=== PATIENT | male | born 1955 | race Caucasian/White ===

== ENCOUNTER 2024-08-15 11:14 | Emergency (ER) | payer OTHER ==
--- OUTSIDE RECORDS SUMMARY | 2024-08-15 11:17 | XMS REPORT | Continuity of Care Document ---
Author Name Unknown Address [address] [facility] [address] [place] [id number] [facility] thconnect Address [address] [facility] [address] [place] [address] Care Team Providers Care Inside Sales Territory Manager Name Role Phone Radiology Attending Clinician Unavailable RADIOLOGY Attending Clinician Unavailable ADILENE MEYERS M.D. Attending Clinician Unavail KARL Yousif Attending Clinician KARL Jackman Admitting Clinician Diana jacob Payers Payer Name Policy Type Policy Number Effective Date Expirati on Date Source [employer] [id number] 2016 00:00:00 2018 00:00:00 Problems Condition Name Condition Details Condition Category Status Onset Date Resolution Date Last Treatment Date Treating Clinician Comments Source Obesity (BMI 30-39.9) Obesity (BMI 30-39.9) Disease Active 02-25 00:00: 00 [facility] Essential (primary) hypertensi on Essential (primary) hypertensi on Problem Active [facility] Bladder cancer Bladder cancer Problem Active [facility] 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 Problem Active [facility] Hyperglyce nimo Hyperglyce nimo Problem Active [facility] Fatty liver Fatty liver Problem Active [facility] Chronic hepatitis C without mention of hepatic coma Chronic hepatitis C without mention of hepatic coma Problem Active [facility] HDL deficiency HDL deficiency Problem Active [facility] History of Arthritis History of Arthritis Problem Resolve d [facility] History of Bladder cancer History of Bladder cancer Problem Resolve d [facility] History of Hemorrhoid History of Hemorrhoid Problem Resolve d [facility] History of Hepatitis History of Hepatitis Problem Resolve d [facility] History of Hernia History of Hernia Problem Resolve d [facility] History of High blood pressure History of High blood pressure Problem Resolve d [facility] History of Peptic ulcer History of Peptic ulcer Problem Resolve d [facility] Epistaxis Epistaxis Problem Active [facility] Left hip pain Left hip pain Problem Active [facility] Osteoarthr itis of left hip Osteoarthr itis of left hip Problem Active [facility] Allergies, Adverse Reactions, Alerts Allergy Name Allergy Type Status Severity Reaction(s) Onset Date Inactive Date Treating Clinician Comments Source MORPHINE DRUG INGREDI Active Unknown-Cmnt 02-24 00:00: 00 [facility] Morphine Propensi ty to adverse reaction s Active Unknown - See comments 02-24 00:00: 00 [facility] MORPHINE DRUG INGREDI Active Unknown-Cmnt 01-10 00:00: 00 [facility] PROCAINE HCL DRUG INGREDI Active Unknown-Cmnt 01-10 00:00: 00 [facility] Morphine Derivati ves drug allergy Active [facility] Family History Family Member Diagnosis Comments Start Date Stop Date Sourc e Mother Family history of He art disease [facility] Father Family history of Alzheimer's dementia without behavioral disturbance, unspecified timing of dementia onset [facility] Social History Social Habit Start Date Stop Date Quantity Comments Source [facility] History of tobacco use 2007-02-24 00:00:00 Smoker [facility] Smoking Status Start Date Stop Date Source Never smoker [facility] Former smoker 2017-03-02 00:00:00 2017-03-02 00:00:00 [facility] Medications Ordered Medication Name Filled Medication Name Start Date Stop Date Current Medication? Ordering Clinician Indication Dosage Frequency Signature (SIG) Comments Components Source iohexol (OMNIPAQUE 350 BULK-150 mL) injection 130 mL 12-17 21:15: 00 12-17 21:03 :00 No 130mL 130 mL, Intravenou s, ONCE, 1 dose, 12/17/20 at 1515, Routine [facility] Lisinopril Lisinopril 01-10 00:00: 00 Yes Jose José 1 tablet [facility] HYDROcodone -acetaminop hen 7.5-325 mg per tablet 02-25 14:53: 41 Yes 1{tbl} Take 1 tablet by mouth every 6 (six) hours as needed for Pain. [facility] metFORMIN 500 mg tablet 02-25 14:53: 41 Yes 500mg Take 500 mg by mouth 2 (two) times daily with meals. [facility] valsartan 320 mg tablet 02-25 14:53: 41 Yes 320mg Take 320 mg by mouth daily. [facility] Metformin HCl Metformin HCl Yes Jose José TAKE ONE TABLET BY MOUTH ONCE DAILY [facility] Niacin ER Niacin ER Yes Jose José 1 capsule with food [facility] Belsomra Belsomra Yes Jose Sykesa 1 tablet [facility] Flomax Flomax Yes Jose José not defined [facility] [place] Yes Jose José 1 tablet as needed [facility] HYDROcodone -Acetaminop hen TABS HYDROcodone -Acetaminop hen TABS Yes [facility] Diovan TABS Diovan TABS Yes [facility] [place] 7.5-325 MG Oral Tablet [place] 7.5-325 MG Oral Tablet Yes [facility] Methocarbam ol 500 MG Oral Tablet Methocarbam ol 500 MG Oral Tablet Yes [facility] Lisinopril 20 MG Oral Tablet Lisinopril 20 MG Oral Tablet Yes [facility] Aspirin 81 MG TABS Aspirin 81 MG TABS Yes [facility] Diovan Diovan 01-10 00:00 :00 No Jose José 1 tablet [facility] Valsartan Valsartan 01-10 00:00 :00 No Jose José TAKE ONE TABLET BY MOUTH ONCE DAILY [facility] Benicar Benicar 01-10 00:00 :00 No Jose José TAKE ONE (1) TABLET(S) BY MOUTH ONCE A DAY. [facility] Vital Signs Vital Name Observation Time Observation Value Comments S ource Weight 2019-02-03 13:17:00 250 [lb_av] [facility] Body Mass Index Calculated 2019-02-03 13:17:00 36.92 kg/m2 [facility] Procedures Procedure Date / Time Performed Performing Clinician Source HB CREATININE BLOOD 2020-12-17 20:37:00 [facility] History of Hernia Repair [facility] History of Bladder Surgery [facility] History of Tonsillectomy [facility] Encounters Start Date/Time End Date/Time Encounter Type Admission Type Attending Clinicians Care Facility Care Department Encounter ID Source 2020-12-17 14:00:00 2020-12-17 23:59:00 Hospital Encounter Radiology [facility] [id number] [facility] 2020-12-17 00:00:00 2020-12-17 00:00:00 Outpatient R RADIOLOGY [facility] [id number] [facility] 2020-12-10 00:00:00 2020-12-10 23:59:00 Outpatient R RADIOLOGY [facility] [id number] [facility] 2019-02-03 13:10:00 2019-02-03 13:10:00 AppointADILENE Stephen M.D. KORTHAUER, KEN, M.D. [facility] [id number] [facility] 2019-01-10 10:00:00 2019-01-10 10:00:00 [facility] [id number] [facility] 2017-02-25 06:56:00 2017-02-25 09:50:00 Outpatient R KARL MUNROE [facility] [id number] [facility] Results Test Description Test Time Test Comments Results Result Co mments Source [facility][U] XRAY HIP UNILATERAL MIN 2 VWS LEFT [id number] 2019-02-03 13:14:00Images acquired, not reported on this accession number.[facility]
--- NOTE | 2024-08-15 12:39 | RAD REPORT ---
EXAMINATION: US LEFT LOWER EXTREMITY VENOUS DOPPLER CLINICAL INDICATION: Pain;Swelling TECHNIQUE: Complete bilateral duplex sonography of the LEFT lower extremity veins was performed. The examination included compression for vein patency, color Doppler imaging and flow augmentation in response to distal compression of the distal external iliac, common femoral, femoral, popliteal, tibi al, and great and small saphenous veins. COMPARISON: No prior exam. FINDINGS: Duplex sonography testing of the veins of the LEFT lower extremity was performed. Color flow imaging shows all veins to be compressible with [id number] color filling. Pulsatile and phasic flow is present within all lower extremity deep and superficial veins examined. IMPRESSION: There is no deep vein or superficial vein thrombosis.
--- NOTE | 2024-08-15 12:41 | RAD REPORT ---
EXAMINATION:Lower Extremity Artery Uni Ltd CLINICAL INDICATION: Male, 68 years old. PAIN TECHNIQUE: Arterial duplex ultrasound was performed of the left with real-time, color-flow, and spect ral wave Doppler evaluation. Ankle brachial indices were not performed. COMPARISON: No prior exam. FINDINGS: Mild plaque throughout the evaluated arterial system. Triphasic waveforms are seen throughout the evaluated left lower extremity arterial system, to the le myranda of the popliteal artery.. Monophasic flow noted involving the left posterior tibial and dorsalis pedis artery. No complete occlusion seen. IMPRESSION: [id number] infrapopliteal peripheral vascular disease on the left noted.
[2024-08-15 13:40] LABS: Absolute Eosinophils 0.1 K/uL (0-0.5); Absolute Neutrophil 6.6 K/uL (1.8-8.0); Basophils % 0.3 % (0-1.3); Eosinophils % 0.8 % (0-4.4); Hematocrit 40.7 % (39.6-49.0); Hemoglobin 13.7 g/dL (13.6-17.9); MCH 31.5 pg (27.0-35.0); MCHC 33.5 g/dL (32.0-36.0); MCV 93.9 fL (80-100); Monocytes % 10.3 % (3.3-12.3); Neutrophils % 67.6 % (41.7-73.7); Platelets 244 thou/uL (152-406); RBC Red Blood Cell Count 4.34 M/uL (4.33-5.43); Red Cell Distribution Width 13.9 % (12.1-15.2)
[2024-08-15 13:48] LABS: Specific Gravity 1.029 (1.005-1.030); Sqamous Epithelial <5 /HPF (None Seen); Urine Bacteria None Seen /HPF (<20); Urine Bilirubin NEGATIVE (Negative); Urine Blood Negative (Negative); Urine Clarity Clear (Clear); Urine Color Yellow (Yellow); Urine Culture Reflex Order NOT NEEDED; Urine Glucose NEGATIVE (Negative); Urine Ketones NEGATIVE (Negative); Urine Microscopic Reflex YN ORDER UMIC; Urine Mucus Slight /HPF (None Seen); Urine Nitrite NEGATIVE (Negative); Urine Protein TRACE (Negative); Urine RBC <5 /HPF (None Seen); Urine Urobilinogen 1+ (Normal); Urine WBC <5 /HPF (<5); Urine Yeast (Budding) Trace /HPF (None Seen); Urine pH 6.5 (5.0-7.0)
[2024-08-15 13:50] LABS: PT Prothrombin Time 11.8 SECONDS (9.4-12.5); PTT, Activated Partial Thromb 28.5 SECONDS (24.3-36.9); Protime INR 1.06
[2024-08-15 14:00] LABS: AST/SGOT 15 U/L (15-37); Albumin 3.9 g/dL (3.4-5.0); Albumin/Globulin Ratio 0.9 (1.1-1.8); Alkaline Phosphatase 55 U/L (45-117); Anion Gap 6.8 mEq/L (5.0-15.0); BUN Blood Urea Nitrogen 16 mg/dL (7-18); Bicarbonate 28 mEq/L (21-32); Bilirubin Total 0.7 mg/dL (0.2-1.0); Globulin 4.2 g/dL (2.3-3.5); Glomerular Filtration Rate 71 ml/min (=/>90); Glucose Level 118 mg/dL (74-106); Potassium 3.8 mEq/L (3.5-5.1); Protein, Total 8.1 g/dL (6.4-8.2); Sodium Level 139 mEq/L (136-145)
[2024-08-15 14:01] LABS: ALT/SGPT < 14 U/L (16-61)
[2024-08-15] MEDS ORDERED: DOXYCYCLINE 100 MG CAP PO ONE (14:31)
[2024-08-15] MEDS ORDERED: KETOROLAC 30 MG/ML INJ ONE (14:31)
--- NOTE | 2024-08-15 14:35 | EDPHYS ---
Physician Documentation [facility] Name: Stephon Thayer Age: 68 yrs Sex: Male : 1955 Arrival Date: 08/15/2024 Time: 11:14 Bed 7 Private MD: ED Physician Samir Ruby HPI: 08/15 11:45 This 68 yrs old Male presents to ER via Ambulatory with complaints of Leg Swelling - cp Left. 11:45 The patient presents with pain, that is acute, swelling, tenderness, erythema. cp 11:45 The complaints affect the medial aspect of left calf and left bustillos. Context: resulted cp from an unknown cause, the patient can fully bear weight, the patient is able to ambulate, with mild difficulty. Onset: The symptoms/episode began/occurred 4 day(s) ago. Associated signs and symptoms: Pertinent positives: calf tenderness, swelling, warmth, Pertinent negatives fever, numbness, rash. Treatment prior to arrival includes: no previous treatment. Severity of symptoms: in the emergency department the symptoms are unchanged, despite home interventions. Historical: - Allergies: 11:36 No Known Allergies; cm10 - Home Meds: 11:36 Methocarbamol Oral as needed [Active]; oxycodone 5 mg Oral tablet [Active]; cm10 - PMHx: 11:36 Chronic hip pain; cm10 - Immunization history:: Adult Immunizations up to date. - Infectious Disease History:: Denies. - Social history:: Smoking status: Patient denies any tobacco usage or history of. ROS: 11:50 Constitutional: Negative for body aches, chills, fever, poor PO intake, cp 11:50 Eyes: Negative for injury, pain, redness, and discharge, cp 11:50 ENT: Negative for drainage from ear(s), ear pain, sore throat, difficulty swallowing, difficulty handling secretions, 11:50 Cardiovascular: Positive for edema, Negative for chest pain, palpitations, 11:50 Respiratory: Negative for cough, shortness of breath, wheezing, 11:50 Abdomen/GI: Negative for abdominal pain, vomiting, diarrhea, constipation, 11:50 Back: Negative for pain at rest, pain with movement, 11:50 MS/extremity: Positive for erythema, pain, swelling, tenderness, of the left bustillos and medial aspect of left calf, 11:50 Neuro: Negative for altered mental status, dizziness, headache, numbness, syncope, weakness, 11:50 All other systems are negative, Exam: 11:55 Constitutional: The patient appears in no acute distress, alert, awake, cp non-diaphoretic, non-toxic, well developed, well nourished, uncomfortable, 11:55 Head/Face: Normocephalic, atraumatic. cp 11:55 Eyes: Periorbital structures: appear normal, Conjunctiva: normal, no exudate, no injection, Sclera: no appreciated abnormality, Lids and lashes: appear normal, bilaterally, 11:55 ENT: External ear(s): are unremarkable, Nose: is normal, Mouth: Lips: moist, Oral mucosa: moist, Posterior pharynx: Airway: no evidence of obstruction, patent, 11:55 Neck: ROM/movement: is normal, is supple, without pain, no range of motions limitations, 11:55 Chest/axilla: Inspection: normal, 11:55 Cardiovascular: Rate: normal, Rhythm: regular, Edema: 1+ edema to level of right ankle and right foot, 2+ edema to level of left ankle and left foot, ankle edema, that is mild, JVD: is not appreciated, 11:55 Respiratory: the patient does not display signs of respiratory distress, Respirations: normal, no use of accessory muscles, no retractions, labored breathing, is not present, Breath sounds: are clear throughout, no decreased breath sounds, no stridor, no wheezing, 11:55 Abdomen/GI: Exam negative for discomfort, distension, guarding, Inspection: abdomen appears normal, 11:55 Back: pain, is absent, ROM is normal, 11:55 Musculoskeletal/extremity: Extremities: noted in the left bustillos and medial aspect of left calf: erythema, pain, swelling, tenderness, 11:55 Neuro: Orientation: to person, place \T\ time. Mentation: is normal, 13:23 ECG was reviewed by the Attending Physician. cp Vital Signs: 11:34 BP 149 / 80; Pulse 80; Resp 16; Temp 98.7; Pulse Ox 99% on R/A; Weight 102.97 kg; cm10 Height 5 ft. 9 in. ; Pain 5/10; 14:26 BP 139 / 88; Pulse 78; Resp 18; Pulse Ox 100% on R/A; mb9 15:12 BP 129 / 59; Pulse 71; Resp 16; Pulse Ox 100% on R/A; mb9 11:34 Body Mass Index 33.52 (102.97 kg, 175.26 cm) cm10 11:34 Pain Scale: Adult cm10 MDM: 11:38 Medical Screening Exam initiated cp 14:00 Differential diagnosis: cellulitis, abscess, DVT, sepsis. 14:33 Data reviewed: vital signs, nurses notes, lab test result(s), EKG, radiologic studies, cp ultrasound, and as a result, I will discharge patient. 14:33 I considered the following discharge prescriptions or medication management in the emergency department Medications were administered in the Emergency Department. See MAR. Counseling: I had a detailed discussion with the patient and/or guardian regarding the historical points, exam findings, and any diagnostic results supporting the discharge/admit diagnosis, lab results, radiology results, the need for outpatient follow up, a family practitioner, to return to the emergency department if symptoms worsen or persist or if there are any questions or concerns that arise at home. Response to treatment: the patient's symptoms have mildly improved after treatment, and as a result, I will discharge patient. 08/15 11:41 Order name: Blood Culture Adult (2) 08/15 11:41 Order name: CBC with Diff; Complete Time: 14:10 08/15 14:10 Interpretation: Normal except: MPV 7.0. 08/15 11:41 Order name: CMP; Complete Time: 14:10 08/15 14:10 Interpretation: Normal except: CL 108; GLUC 118; GFR 71; ALT < 14; GLOB 4.2; A/G 0.9. 08/15 11:41 Order name: Lactate w/ 2H reflex if indic.; Complete Time: 14:10 08/15 11:41 Order name: Protime (+inr); Complete Time: 14:10 08/15 11:41 Order name: Ptt, Activated; Complete Time: 14:10 08/15 11:41 Order name: Urinalysis w/ reflexes; Complete Time: 14:10 08/15 14:10 Interpretation: Normal except: UPROT TRACE; UUROB 1+; BYST Trace. 08/15 11:41 Order name: US Extremity Venous Unilateral Ltd; Complete Time: 14:10 08/15 14:11 Interpretation: Report reviewed. cp 08/15 11:41 Order name: US Lower Extremity Artery Uni Ltd; Complete Time: 14:10 cp 08/15 14:11 Interpretation: Report reviewed. cp 08/15 11:41 Order name: Accucheck; Complete Time: 13:23 cp 08/15 11:41 Order name: Cardiac monitoring; Complete Time: 13:23 cp 08/15 11:41 Order name: EKG - Nurse/Tech; Complete Time: 13:23 cp 08/15 11:41 Order name: IV Saline Lock - Large Bore; Complete Time: 13:23 cp 08/15 11:41 Order name: Labs collected and sent; Complete Time: 13:23 cp 08/15 11:41 Order name: O2 Per Protocol; Complete Time: 13: cp 08/15 11:41 Order name: O2 Sat Monitoring; Complete Time: 13:23 cp 08/15 11:41 Order name: Vital Signs; Complete Time: 13:23 cp EC: Rate is 81 beats/min. Rhythm is regular. AR interval is normal. QRS interval is normal. cp QT interval is normal. T waves are Inverted in lead aVR. Interpreted by me. Reviewed by me. Administered Medications: 14:36 Drug: Doxycycline PO 200 mg PO once Route: PO; mb9 15:03 Follow up: Response: No adverse reaction mb9 14:37 Drug: Bacitracin Topical Ointment (500 unit/g) 1 application Topical once Route: mb9 Topical; Site: affected area; 14:37 Drug: Ketorolac IVP 15 mg IVP once Route: IVP; Site: right antecubital; mb9 15:03 Follow up: Response: No adverse reaction mb9 Disposition: 17:54 I was immediately available on-site in the Emergency Department for consultation in the ms3 care of the patient. Disposition Summary: 08/15/24 14:34 Discharge Ordered Notes: Location: Home cp Problem: new cp Symptoms: have improved cp Condition: Stable cp Diagnosis - Cellulitis of left lower limb cp Followup: cp - With: Private Physician - When: 2 - 3 days - Reason: Recheck today's complaints Discharge Instructions: - Discharge Summary Sheet cp - Cellulitis, Adult cp Forms: - Medication Reconciliation Form cp - Antibiotic Education cp - Prescription Opioid Use cp - Patient Portal Instructions cp - Leadership Thank You Letter cp Prescriptions: - mupirocin 2 % Topical ointment - apply 1 application TOPICAL route 2 times per day; 45 gram tube; Refills: 0, cp Product Selection Permitted - Anaprox DS 550 mg Oral Tablet - take 1 tablet ORAL route every 12 hours As needed; 20 tablet; Refills: 0, cp Product Selection Permitted - Doxycycline Hyclate 100 mg Oral Tablet - take 1 tablet ORAL route every 12 hours; 20 tablet; Refills: 0, Product cp Selection Permitted Signatures: Dispatcher [employer] EDMS Liam Quijano PA PA cp Samir Ruby, DO ms3 Iesha Darden, RN RN mb9 Cecilia Burns RN RN cm10 Corrections: (The following items were deleted from the chart) 11:41 11:41 BLOOD CULTURE*+BA.LAB.BRZ ordered. EDMS EDMS 11:41 11:41 CBC+H.LAB.BRZ ordered. EDMS EDMS 11:41 11:41 COMPREHENSIVE METABOLIC PANEL+C.LAB.BRZ ordered. EDMS EDMS 11:41 11:41 LACTATE+C.LAB.BRZ ordered. EDMS EDMS 11:41 11:41 PROTIME (+INR)+COAG.LAB.BRZ ordered. EDMS EDMS 11:41 11:41 PTT, ACTIVATED+COAG.LAB.BRZ ordered. EDMS EDMS 11:41 11:41 Urinalysis+U.LAB.BRZ ordered. EDMS EDMS 11:41 11:41 Extremity Venous Uni Ltd+US.RAD.BRZ ordered. EDMS EDMS 11:41 11:41 Lower Extremity Artery Uni Ltd+US.RAD.BRZ ordered. EDMS EDMS
--- NOTE | 2024-08-15 14:35 | ER ---
Nurse's Notes [facility] Name: Stephon Thayer Age: 68 yrs Sex: Male : 1955 Arrival Date: 08/15/2024 Time: 11:14 Bed 7 Private MD: Diagnosis: Cellulitis of left lower limb Presentation: 08/15 11:34 Chief complaint: Patient states: Left lower leg pain, redness, swelling, and warmth to cm10 the touch onset 4 days ago. Pt note to have redness and swelling. Coronavirus screen: Client denies travel out of the [place] in the last 14 days. Ebola Screen: Patient denies travel to an Ebola-affected area in the 21 days before illness onset. No symptoms or risks identified at this time. Initial Sepsis Screen: Does the patient meet any 2 criteria? No. Patient's initial sepsis screen is negative. Does the patient have a suspected source of infection? No. Patient's initial sepsis screen is negative. Risk Assessment: Do you want to hurt yourself or someone else? Patient reports no desire to harm self or others. Onset of symptoms was August 11, 2024. 11:34 Method Of Arrival: Ambulatory cm10 11:34 Acuity: JL 3 cm10 Triage Assessment: 11:37 General: Appears in no apparent distress. comfortable, Behavior is calm, cooperative. cm10 Neuro: No deficits noted. Level of Consciousness is awake, alert, obeys commands, Oriented to person, place, time, situation, Appropriate for age. Respiratory: No deficits noted. Airway is patent Respiratory effort is even, unlabored, Respiratory pattern is regular, symmetrical. Historical: - Allergies: 11:36 No Known Allergies; cm10 - Home Meds: 11:36 Methocarbamol Oral as needed [Active]; oxycodone 5 mg Oral tablet [Active]; cm10 - PMHx: 11:36 Chronic hip pain; cm10 - Immunization history:: Adult Immunizations up to date. - Infectious Disease History:: Denies. - Social history:: Smoking status: Patient denies any tobacco usage or history of. Screenin:06 [facility] ED Fall Risk Assessment (Adult) History of falling in the last 3 months, mb9 including since admission No falls in past 3 months (0 pts) Confusion or Disorientation No (0 pts) Intoxicated or Sedated No (0 pts) Impaired Gait No (0 pts) Mobility Assist Device Used No (0 pt) Altered Elimination No (0 pt) Score/Fall Risk Level 0 - 2 = Low Risk Oriented to surroundings, Maintained a safe environment, Educated pt \T\ family on fall prevention, incl call for assistance when getting out of bed. Abuse screen: Denies threats or abuse. Nutritional screening: No deficits noted. Tuberculosis screening: No symptoms or risk factors identified. Assessment: 13:06 Reassessment: pt brought back to ER room. mb9 13:21 General: Appears in no apparent distress. Behavior is calm, cooperative. Pain: Denies mb9 pain. Neuro: Regan Agitation-Sedation Scale (RASS): 0 - Alert and Calm Level of Consciousness is awake, alert, obeys commands, Oriented to person, place, time, situation, Appropriate for age. Cardiovascular: Patient's skin is warm and dry. Cardiovascular: Pulses are 1+ in left posterior tibial artery and left dorsalis pedis artery. Respiratory: Airway is patent Respiratory effort is even, unlabored, Respiratory pattern is regular, symmetrical. GI: Abdomen is round non-distended. : No signs and/or symptoms were reported regarding the genitourinary system. EENT: No signs and/or symptoms were reported regarding the EENT system. Derm: Skin is red. Musculoskeletal: Range of motion: intact in all extremities, Swelling present in left leg. 14:37 Reassessment: No changes from previously documented assessment. Patient and/or family mb9 updated on plan of care and expected duration. Pain level reassessed. Patient is alert, oriented x 3, equal unlabored respirations, skin warm/dry/pink. 14:37 Reassessment: D/C pending medication administration wait time. mb9 Vital Signs: 11:34 BP 149 / 80; Pulse 80; Resp 16; Temp 98.7; Pulse Ox 99% on R/A; Weight 102.97 kg; cm10 Height 5 ft. 9 in. ; Pain 5/10; 14:26 BP 139 / 88; Pulse 78; Resp 18; Pulse Ox 100% on R/A; mb9 15:12 BP 129 / 59; Pulse 71; Resp 16; Pulse Ox 100% on R/A; mb9 11:34 Body Mass Index 33.52 (102.97 kg, 175.26 cm) cm10 11:34 Pain Scale: Adult cm10 ED Course: 11:15 Patient arrived in ED. im 11:18 Liam Quijano PA is PHCP. cp 11:18 Samir Ruby DO is Attending Physician. cp 11:36 Triage completed. cm10 11:37 Arm band placed on Patient placed in waiting room. cm10 12:19 US Extremity Venous Unilateral Ltd In Process Unspecified. EDMS 12:19 US Lower Extremity Artery Uni Ltd In Process Unspecified. EDMS 12:53 Iesha Darden, ADELFO is Primary Nurse. mb9 13:06 Placed in gown. Bed in low position. Call light in reach. Side rails up X 1. Provided mb9 Education on: press call light if needing anything. Client placed on continuous cardiac and pulse oximetry monitoring. NIBP monitoring applied. clinical sales consultant on. 13:21 EKG done, by ED staff, reviewed by Liam AGUILLON. mb9 13:22 No provider procedures requiring assistance completed. mb9 13:25 Initial lab(s) drawn, by nh, sent to lab. First set of blood cultures drawn by me, cc6 Second set of blood cultures drawn by nh. 13:33 Inserted saline lock: 20 gauge in right antecubital area, using aseptic technique. cc6 Blood collected. Flushed with 10 mL NS. 13:35 Blood Culture Adult (2) Sent. cc6 13:35 CBC with Diff Sent. cc6 13:35 CMP Sent. cc6 13:35 Lactate w/ 2H reflex if indic. Sent. cc6 13:35 Protime (+inr) Sent. cc6 13:35 Ptt, Activated Sent. cc6 13:35 Urinalysis w/ reflexes Sent. cc6 15:04 IV discontinued, intact, bleeding controlled, No redness/swelling at site. Pressure mb9 dressing applied. Administered Medications: 14:36 Drug: Doxycycline PO 200 mg PO once Route: PO; mb9 15:03 Follow up: Response: No adverse reaction mb9 14:37 Drug: Bacitracin Topical Ointment (500 unit/g) 1 application Topical once Route: mb9 Topical; Site: affected area; 14:37 Drug: Ketorolac IVP 15 mg IVP once Route: IVP; Site: right antecubital; mb9 15:03 Follow up: Response: No adverse reaction mb9 Medication: 13:06 VIS not applicable for this client. mb9 Outcome: 14:34 Discharge ordered by . cp 15:04 Discharged to home ambulatory, mb9 15:04 Condition: stable 15:04 Discharge instructions given to patient, Instructed on discharge instructions, follow up and referral plans. Demonstrated understanding of instructions, follow-up care, medications, Prescriptions given X 3, 15:13 Patient left the ED. mb9 Signatures: Dispatcher [employer] EDMS Liam Quijano PA PA cp Wilkerson, Mary Beth RN RN mb9 Gladys Mancera Clarissa, RN RN cm10 Patti Phillips cc6
[2024-08-15 15:26] VITALS: TEMP 98.7
[2024-08-15 15:32] VITALS: O2SAT 100
[2024-08-15 15:43] VITALS: BP 129/59
--- NOTE | 2024-08-17 14:57 | EKG ---
Test Date: 2024-08-15 Test Time: 13:16:21 Teaching Artist: MB MEASUREMENT RESULTS: Intervals: Rate: 81 NJ: 164 QRSD: 74 QT: 368 QTc: 427 May: P: 64 NJ: 164 QRS: 43 T: 53 INTERPRETIVE STATEMENTS: Sinus rhythm with marked sinus arrhythmia Anterior infarct, age undetermined Abnormal ECG Compared to ECG 05/31/2010 18:16:39 Myocardial infarct finding now present Electronically Signed On 08-17-24 14:48:21 CDT by Sacha Bacon
== END 2024-08-15 15:13 | disposition home or self-care (01) ==
LOC: ER 11:14
DX: L03.116 Cellulitis of left lower limb (principal)
CPT/HCPCS: 36415; 80053; 81001; 83605; 85025; 85610; 85730; 87040; 93005; 93926; 93971; 96374; 99285

== ENCOUNTER 2024-08-19 18:25 | Emergency (ER) | payer OTHER ==
--- OUTSIDE RECORDS SUMMARY | 2024-08-19 18:28 | XMS REPORT | Continuity of Care Document ---
Author Name Unknown Address [address] [place] [address] [facility] [address] [place] [address] Care Team Providers Care Epidemiology Internship Name Role Phone Radiology Attending Clinician Unavailable RADIOLOGY Attending Clinician Unavailable ADILENE MEYERS M.D. Attending Clinician Unavail KARL Yousif Attending Clinician KARL Jackman Admitting Clinician Diana jacob Payers Payer Name Policy Type Policy Number Effective Date Expirati on Date Source Connected [id number] 2016 00:00:00 2018 00:00:00 Problems Condition Name Condition Details Condition Category Status Onset Date Resolution Date Last Treatment Date Treating Clinician Comments Source Obesity (BMI 30-39.9) Obesity (BMI 30-39.9) Disease Active 02-25 00:00: 00 [facility] Essential (primary) hypertensi on Essential (primary) hypertensi on Problem Active [facility] Bladder cancer Bladder cancer Problem Active [facility] 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 Problem Active [facility] Hyperglyce nimo Hyperglyce nimo Problem Active [facility] Fatty liver Fatty liver Problem Active [facility] Chronic hepatitis C without mention of hepatic coma Chronic hepatitis C without mention of hepatic coma Problem Active [facility] HDL deficiency HDL deficiency Problem Active [facility] History of Arthritis History of Arthritis Problem [...] DRUG INGREDI Active Unknown-Cmnt 02-24 00:00: 00 [facility] Morphine Propensi ty to adverse reaction s Active Unknown - See comments 02-24 00:00: 00 [facility] MORPHINE DRUG INGREDI Active Unknown-Cmnt 01-10 00:00: 00 [facility] PROCAINE HCL DRUG INGREDI Active Unknown-Cmnt 01-10 00:00: 00 [facility] Morphine Derivati ves drug allergy Active [facility] Family History Family Member Diagnosis Comments Start Date Stop Date Sourc e Mother Family history of He art disease [facility] Father Family history of Alzheimer's dementia without behavioral disturbance, unspecified timing of dementia onset [facility] Social History Social Habit Start Date Stop Date Quantity Comments Source Sex Assigned At [facility] History of tobacco use 2007-02-24 00:00:00 Smoker [facility] Smoking Status Start Date Stop Date Source Never smoker [facility] Former smoker 2017-03-02 00:00:00 2017-03-02 00:00:00 [facility] Medications Ordered Medication Name Filled Medication Name Start Date Stop Date Current Medication? Ordering Clinician Indication Dosage Frequency Signature (SIG) Comments Components Source iohexol (OMNIPAQUE 350 BULK-150 mL) injection 130 mL 12-17 21:15: 00 12-17 21:03 :00 No 130mL 130 mL, Intravenou s, ONCE, 1 dose, 12/17/20 at 1515, Routine [facility] Lisinopril Lisinopril 01-10 00:00: 00 Yes Jose José 1 tablet [facility] HYDROcodone -acetaminop hen 7.5-325 mg per tablet 02-25 14:53: 41 Yes 1{tbl} Take 1 tablet by mouth every 6 (six) hours as needed for Pain. [facility] metFORMIN 500 mg tablet 02-25 14:53: 41 Yes 500mg Take 500 mg by mouth 2 (two) times daily with meals. [facility] valsartan 320 mg tablet 02-25 14:53: 41 Yes 320mg Take 320 mg by mouth daily. [facility] Metformin HCl Metformin HCl Yes Jose José TAKE ONE TABLET BY MOUTH ONCE DAILY [facility] Niacin ER Niacin ER Yes Jose José 1 capsule with food [facility] Belsomra Belsomra Yes Jose Sykesa 1 tablet [facility] Flomax Flomax Yes Jose José not defined [facility] Pembroke P[place]roke Yes Jose José 1 tablet as needed [facility] HYDROcodone -Acetaminop hen TABS HYDROcodone -Acetaminop hen TABS Yes [facility] Diovan TABS Diovan TABS Yes [facility] [place]roke 7.5-325 MG Oral Tablet [place] 7.5-325 MG Oral Tablet Yes [facility] Methocarbam ol 500 MG Oral Tablet Methocarbam ol 500 MG Oral Tablet Yes [facility] Lisinopril 20 MG Oral Tablet Lisinopril 20 MG Oral Tablet Yes [facility] Aspirin 81 MG TABS Aspirin 81 MG TABS Yes [facility] Diovan Diovan 01-10 00:00 :00 No Jose José 1 tablet [facility] Valsartan Valsartan 01-10 00:00 :00 No oJse José TAKE ONE TABLET BY MOUTH ONCE DAILY [facility] Benicar Benicar 01-10 00:00 :00 No Jose José TAKE ONE (1) TABLET(S) BY MOUTH ONCE A DAY. [facility] Vital Signs Vital Name Observation Time Observation Value Comments S ource Weight 2019-02-03 13:17:00 250 [lb_av] [facility] Body Mass Index Calculated 2019-02-03 13:17:00 36.92 kg/m2 [facility] Procedures Procedure Date / Time Performed Performing Clinician Source HB CREATININE BLOOD 2020-12-17 20:37:00 [facility] History of Hernia Repair [facility] History of Bladder Surgery [facility] History of Tonsillectomy [facility] Encounters Start Date/Time End Date/Time Encounter Type Admission Type Attending Clinicians Care Facility Care Department Encounter ID Source 2020-12-17 14:00:00 2020-12-17 23:59:00 Hospital Encounter Radiology [facility] [id number] [facility] 2020-12-17 00:00:00 2020-12-17 00:00:00 Outpatient R RADIOLOGY [facility] [id number] [facility] 2020-12-10 00:00:00 2020-12-10 23:59:00 Outpatient R RADIOLOGY [facility] [id number] [facility] 2019-02-03 13:10:00 2019-02-03 13:10:00 AppointADILENE Stephen M.D. KORTHAUER, KEN, M.D. [facility] [id number] [place] [facility] 2019-01-10 10:00:00 2019-01-10 10:00:00 [facility] [id number] [facility] 2017-02-25 06:56:00 2017-02-25 09:50:00 Outpatient R KARL MUNROE [facility] [id number] [facility] Results Test Description Test Time Test Comments Results Result Co mments Source [facility][U] XRAY HIP UNILATERAL MIN 2 VWS LEFT [id number] 2019-02-03 13:14:00Images acquired, not reported on this accession number.[facility]
--- NOTE | 2024-08-19 19:32 | ER ---
Nurse's Notes [facility] Name: Stephon Thayer Age: 68 yrs Sex: Male : 1955 Arrival Date: 08/19/2024 Time: 18:25 Bed 20 Private MD: Diagnosis: Localized edema Presentation: 08/19 18:32 Chief complaint: Patient states: was seen here for left leg cellulitis and states aa5 "Today it's day 5 of taking the prescribed medication but my leg is way bigger now". Pt c/o increased swelling and pain to left lower leg. Coronavirus screen: At this time, the client does not indicate any symptoms associated with coronavirus-19. Ebola Screen: Patient denies travel to an Ebola-affected area in the 21 days before illness onset. Initial Sepsis Screen: Does the patient meet any 2 criteria? No. Patient's initial sepsis screen is negative. Does the patient have a suspected source of infection? No. Patient's initial sepsis screen is negative. Risk Assessment: Do you want to hurt yourself or someone else? Patient reports no desire to harm self or others. Onset of symptoms was 2023. 18:32 Acuity: JL 3 aa5 18:32 Method Of Arrival: Ambulatory aa5 Historical: - Allergies: 18:34 No Known Allergies; aa5 - PMHx: 18:34 chronic hip pain; aa5 - Immunization history:: Adult Immunizations. - Infectious Disease History:: Denies. - Social history:: Smoking status: Patient denies any tobacco usage or history of. Screenin:50 [facility] ED Fall Risk Assessment (Adult) History of falling in the last 3 months, ll1 including since admission No falls in past 3 months (0 pts) Confusion or Disorientation No (0 pts) Intoxicated or Sedated No (0 pts) Impaired Gait No (0 pts) Mobility Assist Device Used No (0 pt) Altered Elimination No (0 pt) Score/Fall Risk Level 0 - 2 = Low Risk Maintained a safe environment, Hourly rounding (assess needs \\T\\ fall precautionary measures) done. Abuse screen: Denies threats or abuse. Nutritional screening: No deficits noted. Tuberculosis screening: No symptoms or risk factors identified. Assessment: 18:57 General: Appears uncomfortable, Behavior is calm, cooperative, appropriate for age. ll1 Pain: Complains of pain in left leg Quality of pain is described as aching. Derm: states cellulitis is getting worse Reports pain. Musculoskeletal: Circulation, motion, and sensation intact. Capillary refill < 3 seconds, in left toes. Reports pain in left leg. 19:04 Reassessment: No changes from previously documented assessment. Patient and/or family ll1 updated on plan of care and expected duration. Pain level reassessed. Patient is alert, oriented x 3, equal unlabored respirations, skin warm/dry/pink. 19:04 General: Appears in no apparent distress. Behavior is calm, cooperative. Pain: al5 Complains of pain in left leg. Neuro: Level of Consciousness is awake, alert, obeys commands, Oriented to person, place, time, situation. Cardiovascular: Capillary refill < 3 seconds Patient's skin is warm and dry. Respiratory: Airway is patent Respiratory effort is even, unlabored, Respiratory pattern is regular, symmetrical. GI: No signs and/or symptoms were reported involving the gastrointestinal system. : No signs and/or symptoms were reported regarding the genitourinary system. EENT: No signs and/or symptoms were reported regarding the EENT system. Derm: redness and swelling to L lower leg. Reports pain. Musculoskeletal: Reports pain in left leg. Vital Signs: 18:32 BP 172 / 87; Pulse 70; Resp 18 S; Temp 97.5(TE); Pulse Ox 100% on R/A; Weight 102.51 kg aa5 (R); Height 5 ft. 9 in. (R); 19:05 BP 156 / 81; Pulse 68; Resp 16; Pulse Ox 100% on R/A; al5 19:30 BP 133 / 82; Pulse 67; Resp 18; Pulse Ox 100% on R/A; al5 18:32 Body Mass Index 33.37 (102.51 kg, 175.26 cm) aa5 ED Course: 18:28 Patient arrived in ED. mg5 18:32 Arm band placed on. aa5 18:33 Triage completed. aa5 18:36 Ely Sinha MD is Attending Physician. gb1 18:50 Jd Alas, ADELFO is Primary Nurse. ll1 18:50 Patient has correct armband on for positive identification. Bed in low position. Warm ll1 blanket given. getting into gown to assess LLE. 19:06 Provided Education on: plan of care. al5 19:06 No provider procedures requiring assistance completed. al5 20:10 Patient did not have IV access during this emergency room visit. al5 Administered Medications: No medications were administered Medication: 18:51 VIS not applicable for this client. ll1 Outcome: 19:31 Discharge ordered by . gb1 20:10 Discharged to home ambulatory, al5 20:10 Condition: good 20:10 Discharge instructions given to patient, Instructed on discharge instructions, follow up and referral plans. Demonstrated understanding of instructions, follow-up care, 20:11 Patient left the ED. al5 Signatures: Julia Dimas RN RN aa5 Jd Alas RN RN ll1 Ramona Sandoval mg5 Ely Sinha MD MD gb1 Tonya Madera RN RN al5 Corrections: (The following items were deleted from the chart) 18:35 18:32 BP 172 / 87; Pulse 70bpm; Resp 18bpm; Spontaneous; Pulse Ox 100% RA; Temp 97.5F aa5 Temporal; aa5 19:14 19:06 Inserted saline lock: 22 gauge in right antecubital area, using aseptic al5 technique. ,using aseptic technique. done by jd EMANUEL prior to shift change al5
--- NOTE | 2024-08-19 20:12 | EDPHYS ---
Physician Documentation [facility] Name: Stephon Thayer Age: 68 yrs Sex: Male : 1955 Arrival Date: 08/19/2024 Time: 18:25 Bed 20 Private MD: ED Physician Ely Sinha HPI: 08/19 19:34 This 68 yrs old Male presents to ER via Ambulatory with complaints of FOLLOW gb1 UP. Historical: - Allergies: 18:34 No Known Allergies; aa5 - PMHx: 18:34 chronic hip pain; aa5 - Immunization history:: Adult Immunizations. - Infectious Disease History:: Denies. - Social history:: Smoking status: Patient denies any tobacco usage or history of. Exam: 19:34 Constitutional: This is a well developed, well nourished patient who is awake, alert, gb1 and in no acute distress. Head/Face: Normocephalic, atraumatic. Eyes: Pupils equal round and reactive to light, extra-ocular motions intact. Lids and lashes normal. Conjunctiva and sclera are non-icteric and not injected. Cornea within normal limits. Periorbital areas with no swelling, redness, or edema. ENT: Nares patent. No nasal discharge, no septal abnormalities noted. Tympanic membranes are normal and external auditory canals are clear. Oropharynx with no redness, swelling, or masses, exudates, or evidence of obstruction, uvula midline. Mucous membranes moist. Neck: Trachea midline, no thyromegaly or masses palpated, and no cervical lymphadenopathy. Supple, full range of motion without nuchal rigidity, or vertebral point tenderness. No Meningismus. Chest/axilla: Normal chest wall appearance and motion. Nontender with no deformity. No lesions are appreciated. Cardiovascular: Regular rate and rhythm with a normal S1 and S2. No gallops, murmurs, or rubs. Normal PMI, no JVD. No pulse deficits. Respiratory: Lungs have equal breath sounds bilaterally, clear to auscultation and percussion. No rales, rhonchi or wheezes noted. No increased work of breathing, no retractions or nasal flaring. Abdomen/GI: Soft, non-tender, with normal bowel sounds. No distension or tympany. No guarding or rebound. No evidence of tenderness throughout. Back: No spinal tenderness. No costovertebral tenderness. Full range of motion. Skin: Warm, dry with normal turgor. Normal color with no rashes, no lesions, and no evidence of cellulitis. MS/ Extremity: Pulses equal, no cyanosis. Neurovascular intact. Full, normal range of motion. Pt has 3+ pitting edema with mild cellulitic changes of erythema on LLE. Neuro: Awake and alert, GCS 15, oriented to person, place, time, and situation. Cranial nerves II-XII grossly intact. Motor strength 5/5 in all extremities. Sensory grossly intact. Cerebellar exam normal. Normal gait. Vital Signs: 18:32 BP 172 / 87; Pulse 70; Resp 18 S; Temp 97.5(TE); Pulse Ox 100% on R/A; Weight 102.51 kg aa5 (R); Height 5 ft. 9 in. (R); 19:05 BP 156 / 81; Pulse 68; Resp 16; Pulse Ox 100% on R/A; al5 19:30 BP 133 / 82; Pulse 67; Resp 18; Pulse Ox 100% on R/A; al5 18:32 Body Mass Index 33.37 (102.51 kg, 175.26 cm) aa5 MDM: 18:47 Medical Screening Exam initiated gb1 19:34 Data reviewed: old medical records, Venous doppler of LLE from previous ED visit gb1 radiologic studies, doppler. ED course: 68-year-old male who presents with left lower extremity edema after previously being treated for a left lower extremity cellulitis without signs of DVT on venous Doppler ultrasound on his last ER visit. Patient is currently on doxycycline long-term to the course of 10 days. He is on day #5. He does have it seems to be resolution of the cellulitic changes in the lower left extremity and he is dyeing machine tender in the popliteal fossa. I reviewed the patient's previous venous Doppler left lower extremity which did show mild to moderate peripheral vascular disease in the popliteal region in the lower left extremity. I doubt today the patient has any active DVT in that extremity and the cellulitis as I mentioned seems to be improving. I recommended compression stockings and routine follow-up with his primary care physician to consider vascular as well for evaluation. Patient is compliant with this plan of care and will continue his antibiotic regimen as previously prescribed.. Administered Medications: No medications were administered Disposition Summary: 08/19/24 19:31 Discharge Ordered Notes: Location: Home gb1 Problem: an ongoing problem gb1 Symptoms: are unchanged gb1 Condition: Stable gb1 Diagnosis - Localized edema gb1 Followup: gb1 - With: Private Physician - When: - Reason: Recheck today's complaints Discharge Instructions: - Discharge Summary Sheet gb1 - Peripheral Edema gb1 Forms: - Medication Reconciliation Form gb1 - Antibiotic Education gb1 - Prescription Opioid Use gb1 - Patient Portal Instructions gb1 - Leadership Thank You Letter gb1 Signatures: Julia Dimas, RN RN aa5 Norberto Alas RN RN ll1 Ely Sinha MD MD gb1
[2024-08-19 20:17] VITALS: TEMP 97.5; O2SAT 100
[2024-08-19 20:20] VITALS: BP 133/82
== END 2024-08-19 20:11 | disposition home or self-care (01) ==
LOC: ER 18:25
DX: R60.0 Localized edema (principal)
CPT/HCPCS: 99283

== ENCOUNTER 2024-12-21 10:45 | Day surgery (SDC) | payer OTHER ==
[2024-12-14 10:31] LABS: Absolute Eosinophils 0.1 K/uL (0-0.5); Absolute Lymphocytes (CBC) 2.3 K/uL (0.7-4.9); Absolute Monocytes 0.9 K/uL (0.1-1.3); Absolute Neutrophil 6.3 K/uL (1.8-8.0); Basophils % 0.4 % (0-1.3); Eosinophils % 1.3 % (0-4.4); Hemoglobin 13.6 g/dL (13.6-17.9); Lymphocytes % 23.9 % (15.3-44.8); MCH 31.9 pg (27.0-35.0); MCHC 33.9 g/dL (32.0-36.0); MCV 94.1 fL (80-100); MPV 7.3 fL (7.6-11.3); Monocytes % 9.1 % (3.3-12.3); Neutrophils % 65.3 % (41.7-73.7); Nucleated Red Blood Cells % 0.1 % (0-0); Platelets 209 thou/uL (152-406); RBC Red Blood Cell Count 4.25 M/uL (4.33-5.43); Red Cell Distribution Width 14.1 % (12.1-15.2)
[2024-12-14 10:41] LABS: Anion Gap 8.7 mEq/L (5.0-15.0); Potassium 4.7 mEq/L (3.5-5.1)
[2024-12-14 10:43] LABS: PT Prothrombin Time 11.7 SECONDS (10.0-13.0); PTT, Activated Partial Thromb 26.5 SECONDS (24.3-36.9); Protime INR 1.03
--- NOTE | 2024-12-14 12:34 | RAD REPORT ---
EXAMINATION: TWO VIEW CHEST XR CLINICAL INDICATION: Male, 69 years old. [facility] MAIN pre procedure. Hypertension TECHNIQUE: 2 view radiographs of the chest were performed. COMPARISON: 08/10/2008 FINDINGS: The lungs are well inflated and clear. No pneumothorax or sizable effusion. The heart is normal in si ze. Mediastinal contours are unremarkable. IMPRESSION: No acute or significant abnormalities.
[2024-12-21] MEDS ORDERED: HEPA 1000U/500MLS 2,000 UNIT/1,000 ML BAG IV ONE (10:56)
[2024-12-21] MEDS ORDERED: VERAPAMIL HCL 10 MG/4 ML VIAL IV ONE (10:57)
[2024-12-21] MEDS ORDERED: HEPARIN 10,000 UNIT/10 ML VIAL IV ONE (10:57)
[2024-12-21] MEDS ORDERED: LIDOCAINE 1% 20 ML MDV ONE (10:57)
[2024-12-21] MEDS ORDERED: ATROPINE SULF 1 MG/10 ML SYR IV ONE (10:57)
[2024-12-21] MEDS ORDERED: MIDAZOLAM HCL 2 MG/2 ML INJ ONE (10:57)
[2024-12-21] MEDS ORDERED: CLOPIDOGREL 75 MG TABLET ONE (10:57)
[2024-12-21] MEDS ORDERED: FENTANYL CITR 100 MCG/2 ML ONE (10:58)
[2024-12-21] MEDS ORDERED: TICAGRELOR 90 MG TABLET PO ONE (10:58)
[2024-12-21] MEDS ORDERED: HEPARIN 5000 UNIT/ML 1 ML VIAL ONE (10:58)
[2024-12-21] MEDS ORDERED: ASPIRIN 325 MG TAB ONE (10:58)
[2024-12-21] MEDS ORDERED: NITROGLYCERIN/D5W 50 MG/250 ML BTL IV ONE (10:59)
[2024-12-21] MEDS ORDERED: NA CHLORIDE 0.9% 500 ML ONE (11:35)
[2024-12-21] MEDS ORDERED: FLUMAZENIL 0.1 MG/ML (5 mL VIAL) IV ONE (12:23)
[2024-12-21] MEDS ORDERED: NALOXONE 0.4 MG/ML VIAL ONE (12:23)
[2024-12-21 15:42] VITALS: BP 122/55; O2SAT 98
--- NOTE | 2024-12-21 19:46 | OP ---
Date of Procedure: 12/21/2024 Surgeon: JENNIFER VEGA Procedures Performed: 1. Selective coronary angiogram. 2. Left heart catheterization. Indication: Chest pain with abnormal stress test. Access: Right radial artery 6-Congolese closed with TR band. Complications: None. Bleeding: Less than 50 mL. Anesthesia: Total sedation time was 45 minutes. Used fentanyl and Versed. Description Of Procedure: After risks, benefits, and alternatives were explained, patient agreed to procedure and signed informed consent. The patient was brought into cardiac catheterization laborato , prepped and draped in sterile fashion. Then, I accessed right radial artery using pediatric micr opuncture kit, placed 6-Congolese slender sheath and took 5-Congolese Sprague 4.0 catheter over a J-wire into the aortic root across the aortic valve, measured the LVEDP, and pullback did not record any gradien t, then engaged the RCA, took standard views and then in the left main, took standard views and then removed the catheter and the sheath, placed TR band with good hemostasis. Findings: 1. Left main; large and normal. 2. LAD; very large, proximal 30%, mid diffuse 30% to 40% stenosis and diagonal branches with luminal irregularities. Rest of the LAD is normal. 3. Left circumflex; very large and dominant. Ostial 20% and mid to distal 30% diffuse disease. OM b ranches are with luminal irregularities. 4. RCA; small, nondominant. No significant disease. 5. LVEDP is borderline at 30 mmHg. Conclusion: Mild to moderate coronary artery disease. Recommendation: Medical management. SR/MODL Voice ID: [id number] Report ID: [id number]
== END 2024-12-21 15:50 | disposition home or self-care (01) ==
LOC: CCL 10:45
PROVIDERS: ATTEND Internal Medicine
DX: I25.110 Atherosclerotic heart disease of native coronary artery with unstable angina pectoris (principal); I10 Essential (primary) hypertension; E78.5 Hyperlipidemia, unspecified; Z87.891 Personal history of nicotine dependence; Z88.5 Allergy status to narcotic agent
CPT/HCPCS: 85025; 80048; 36415; 85610; 85730; 71046; 93458; 76937; C1893; Q9966; J1644; J2003; J2250; J3010; J7040; 99152; J0461; J2310